=== PATIENT | male | born 1995 | race Caucasian/White ===

== ENCOUNTER 2022-07-21 18:20 | Inpatient (IN) | payer OTHER, SELFPAY ==
[2022-07-21 18:35] VITALS: BP 118/76; BP 138/77; PULSE 119; PULSE 130; RESP 18; TEMP 37.1; O2SAT 97; O2SAT 98; BMI 38.7
--- NOTE | 2022-07-21 18:46 | ED.PSYCH ---
HPI - Psych General Chief Complaint: Psychiatric Symptoms Stated Complaint: crisis/si Time Seen by Provider: 07/21/22 18:22 Source: patient and EMS Mode of arrival: EMS Limitations: no limitations History of Present Illness HPI Narrative: 26-year-old male history of anxiety and depression presenting to the emergency department via ambulance from his place of employment with anxiety, depression, suicidal ideation with plan to hang himself with a lanyard. Patient tells me he has been feeling this way for the past few days, he reports that 1 of his friends from work got worried about him and asked security to do a well-being check on him, they called 911 and had him come in. Reports increasing life stressors. Tells me that he has many complex with his sister who he lives with. Patient reports he all. Denies homicidal ideation. Denies drugs, alcohol tobacco. Denies visual, auditory and tactile hallucinations. Denies medical complaints. Has never required inpatient psychiatric admission. Related Data Allergies Allergy/AdvReac Type Severity Reaction Status Date / Time Penicillins Allergy Unknown Unknown Unverified 07/21/22 18:44 Review of Systems Review of Systems: Constitutional : No Weight loss, No Fever, No Chills, No Fatigue, No Malaise ENT/Mouth : No sore throat, No Rhinorrhea Eyes: No Eye Pain, No Swelling, No Redness Cardiovascular : No Chest Pain, No SOB, No Dyspnea on Exertion, No Orthopnea, No Edema, No Palpitations Respiratory : No Cough, No Sputum, No Wheezing Gastrointestinal : No Nausea, No Vomiting, No Diarrhea, No Constipation, No abdominal Pain, No Hematochezia, No Melena Genitourinary : No Dysuria, No Urinary Frequency, No Hematuria, Musculoskeletal : No joint pain, No Myalgias, No Joint Swelling Skin : No Skin Lesions, No rash Neuro : No Weakness, No Numbness, No Dizziness, No Headache Psych : + Anxiety/Panic, + Depression, + SI, No HI All other systems reviewed and are negative Yes all other systems are reviewed and are negative [facility] Past Medical History Attestation statement: The following information was validated with the patient. Source: old records reviewed and nursing notes reviewed Social History Social History Alcohol intake: current Alcohol intake frequency: holidays/special occasions only Smoked in Last 30 Days: No Use of substances other than those prescribed or required for medical reasons: Yes Substance Use Type: Marijuana Substance Use Frequency: Occasionally Last Used Substance: Weeks (ago) Advance Directives: No Advance Directives Information Provided: No Physical Exam Vital Signs: Vital Signs: Last Vital Signs Temp 99.0 F 07/21/22 19:36 Pulse 108 H 07/21/22 19:36 Resp 16 07/21/22 19:36 BP 116/60 07/21/22 19:36 Pulse Ox 98 07/21/22 19:36 O2 Del Method 07/21/22 19:36 BMI result Body Mass Index 38.7 Vital signs stable Appearance: Alert.? Oriented X3.? No acute distress.? Patient soft spoken with flat affect. Does not make eye contact. Head: Normocephalic, atraumatic, no step-offs or deformities Eyes: Pupils equal, round and reactive to light.? ENT: Pharynx normal.? Neck: Normal inspection.? Neck supple.? CVS: Normal heart rate and rhythm.? Pulses normal.? Respiratory: No respiratory distress.? Breath sounds normal.? Abdomen: Soft and nontender.? Skin: Skin warm and dry.? Normal skin color.? Normal skin turgor.? Extremities: No lower extremity edema.? No calf ttp. 5/5 strength to bilateral upper and lower extremities Back: No midline tenderness, no C-spine tenderness, full range of motion, no CVA tenderness bilaterally Neuro: Oriented X 3.? No motor deficit.? No sensory deficit. CN 2-12 intact Course Reevaluation(s) Reevaluation #1: CBC with no acute finding. Chemistry with no acute electrolyte abnormalities requiring intervention. Bilirubin 1.9, no tenderness to palpation of abdomen, I do not suspect intra-abdominal etiologies. Urine toxicology negative. Ethanol negative. COVID negative. At this time patient will be placed in observation to allow more time to be evaluated by the behavioral health team. At time observation was started patient common cooperative no acute distress will continue to monitor Time: 21:18 Medications Administered Discontinued Medications Generic Name Dose Route Start Last Admin Trade Name Freq PRN Reason Stop Dose Admin Lorazepam 1 mg 07/21/22 18:44 07/21/22 19:01 Lorazepam 1 Mg Tablet PO 07/21/22 18:45 1 mg ONCE ONE Administration Medical Decision Making Medical Decision Making MDM Narrative: 1847 26-year-old male presents with anxiety, depression and suicidal ideation with plan Physical exam significant for Patient soft spoken with flat affect. Does not make eye contact. Likely anxiety, depression with suicidal ideation. I do not suspect metabolic disturbances. Plan basic labs, evaluation by behavioral health team. Differential Diagnosis Differential Diagnoses: The differential diagnosis associated with the presentation includes Likely anxiety, depression with suicidal ideation. I do not suspect metabolic disturbances. Admission/Observation Consideration of admission/observation: Escalation of care including admission/observation considered Possible inpatient psychiatric admission Consult Healthcare Provider Management of the patient was discussed with: Behavioral Health Provider Lab Data [facility] Lab Attestation statement: I reviewed the patient's lab results. 07/21/22 19:07/21/22 19: Labs: Lab Results 07/21/22 07/21/22 07/21/22 Range/Units 19: 19: 19:01 WBC 7.7 (4.8-10.8) X10*3/uL RBC 6.18 H (4.60-5.80) X10*6/uL Hgb 16.8 (14.0-18.0) g/dl Hct 50.8 (42.0-52.0) % MCV 82.2 (80.0-98.0) fL MCH 27.2 (27.0-33.0) pg MCHC 33.1 (31.0-36.0) g/dl RDW 14.1 (11.0-16.0) % Plt Count 289 (160-400) X10*3/uL MPV 10.9 (9.4-12.4) fL Immature Gran % (Auto) 0.3 (0.0-0.4) % Neut % (Auto) 68.3 (45-73) % Lymph % (Auto) 25.0 (20-40) % [place] % (Auto) 5.8 (2-11) % Eos % (Auto) 0.3 (0-4) % Baso % (Auto) 0.3 (0-2) % Lymph # (Auto) 1.9 (1.2-4.9) X10*3/uL [place] # (Auto) 0.4 (0.1-1.2) X10*3/uL Eos # (Auto) 0.0 (0.0-0.4) X10*3/uL Baso # (Auto) 0.0 (0.0-0.2) X10*3/uL Abs Immat Gran (auto) 0.02 (0.00-0.03) X10*3/uL Absolute Neuts (auto) 5.2 (2.0-8.3) x10*3/uL Absolute Nucleated RBC 0.000 (0.0-0.012) X10*3/uL Nucleated RBC % (auto) 0.0 (0.0-0.2) /100WBC Sodium 140 (135-145) mmol/L Potassium 3.8 (3.3-5.1) mmol/L Chloride 107 (96-108) mmol/L Carbon Dioxide 23 (22-29) mmol/L Anion Gap 14 (12-20) BUN 11 (9-16) mg/dL Creatinine 0.83 (0.5-1.4) mg/dL Estim Creat Clear Calc 173.3 Estimated GFR > 60 Random Glucose 103 (60-115) mg/dL Calcium 9.4 (8.4-10.2) mg/dL Magnesium 1.9 (1.6-2.6) mg/dL Total Bilirubin 1.9 H (0.0-1.0) mg/dL AST 12 (5-37) U/L ALT 14 (0-40) U/L Alkaline Phosphatase 90 (39-117) U/L Total Protein 7.0 (6.5-8.0) g/dL Albumin 4.5 (3.5-5.0) g/dL Urine Opiates Screen (Not Detect) Urine Fentanyl Screen (Not Detect) Ur Barbiturates Screen (Not Detect) Ur Phencyclidine Scrn (Not Detect) Ur Amphetamines Screen (Not Detect) U Benzodiazepines Scrn (Not Detect) Urine Cocaine Screen (Not Detect) U Marijuana (THC) Screen (Not Detect) Ethyl Alcohol < 10 mg/dL COVID-19 (OLIMPIA) Negative (Negative) COVID-19 Clin Com See Note 07/21/22 Range/Units 19:10 WBC (4.8-10.8) X10*3/uL RBC (4.60-5.80) X10*6/uL Hgb (14.0-18.0) g/dl Hct (42.0-52.0) % MCV (80.0-98.0) fL MCH (27.0-33.0) pg MCHC (31.0-36.0) g/dl RDW (11.0-16.0) % Plt Count (160-400) X10*3/uL MPV (9.4-12.4) fL Immature Gran % (Auto) (0.0-0.4) % Neut % (Auto) (45-73) % Lymph % (Auto) (20-40) % [place] % (Auto) (2-11) % Eos % (Auto) (0-4) % Baso % (Auto) (0-2) % Lymph # (Auto) (1.2-4.9) X10*3/uL [place] # (Auto) (0.1-1.2) X10*3/uL Eos # (Auto) (0.0-0.4) X10*3/uL Baso # (Auto) (0.0-0.2) X10*3/uL Abs Immat Gran (auto) (0.00-0.03) X10*3/uL Absolute Neuts (auto) (2.0-8.3) x10*3/uL Absolute Nucleated RBC (0.0-0.012) X10*3/uL Nucleated RBC % (auto) (0.0-0.2) /100WBC Sodium (135-145) mmol/L Potassium (3.3-5.1) mmol/L Chloride (96-108) mmol/L Carbon Dioxide (22-29) mmol/L Anion Gap (12-20) BUN (9-16) mg/dL Creatinine (0.5-1.4) mg/dL Estim Creat Clear Calc Estimated GFR Random Glucose (60-115) mg/dL Calcium (8.4-10.2) mg/dL Magnesium (1.6-2.6) mg/dL Total Bilirubin (0.0-1.0) mg/dL AST (5-37) U/L ALT (0-40) U/L Alkaline Phosphatase (39-117) U/L Total Protein (6.5-8.0) g/dL Albumin (3.5-5.0) g/dL Urine Opiates Screen Not Detected (Not Detect) Urine Fentanyl Screen Not Detected (Not Detect) Ur Barbiturates Screen Not Detected (Not Detect) Ur Phencyclidine Scrn Not Detected (Not Detect) Ur Amphetamines Screen Not Detected (Not Detect) U Benzodiazepines Scrn Not Detected (Not Detect) Urine Cocaine Screen Not Detected (Not Detect) U Marijuana (THC) Screen Not Detected (Not Detect) Ethyl Alcohol mg/dL COVID-19 (OLIMPIA) (Negative) COVID-19 Clin Com Core Measures AMI core measures followed: Yes Measure exclusions: not indicated Critical Care Time Critical Care Time Critical Care Time: No Discharge Plan Discharge Clinical Impression: Depression, Suicidal ideation Patient Disposition: Still a Patient Interventions: [place]-Suicide Risk Severity Scale Last Done: 07/21/22 18:50
[2022-07-21] MEDS: LORazepam 1 MG TABLET PO (19:01)
[2022-07-21 19:04] LABS: MANUAL DIFF FLAG NO
[2022-07-21 19:10] LABS: Basophils Percent Auto 0.3 % (0-2); Eosinophils Percent Auto 0.3 % (0-4); Hematocrit 50.8 % (42.0-52.0); Hemoglobin 16.8 g/dl (14.0-18.0); Imm Gran Abs Auto 0.02 X10*3/uL (0.00-0.03); Imm Gran Pct Auto 0.3 % (0.0-0.4); Lymphocytes Absolute Auto 1.9 X10*3/uL (1.2-4.9); Mean Corpuscular HGB Conc 33.1 g/dl (31.0-36.0); Mean Corpuscular Hemoglobin 27.2 pg (27.0-33.0); Mean Corpuscular Volume 82.2 fL (80.0-98.0); Mean Platelet Volume 10.9 fL (9.4-12.4); Monocytes Absolute Auto 0.4 X10*3/uL (0.1-1.2); Monocytes Percent Auto 5.8 % (2-11); Neutrophils Absolute Auto 5.2 x10*3/uL (2.0-8.3); Neutrophils Percent Auto 68.3 % (45-73); Platelet Count 289 X10*3/uL (160-400); Red Blood Count 6.18 X10*6/uL (4.60-5.80); Red Cell Distribution Width 14.1 % (11.0-16.0); White Blood Count 7.7 X10*3/uL (4.8-10.8)
--- NOTE | 2022-07-21 19:13 | MHC.EDTECH ---
pt blood drawn ,covid swab collected and urine sample all sent to lab .
[2022-07-21 19:21] LABS: Alanine Aminotransferase 14 U/L (0-40); Albumin Level 4.5 g/dL (3.5-5.0); Alkaline Phosphatase 90 U/L (39-117); Anion Gap 14 (12-20); Aspartate Amino Transferase 12 U/L (5-37); Bilirubin Total 1.9 mg/dL (0.0-1.0); Blood Urea Nitrogen 11 mg/dL (9-16); Calcium 9.4 mg/dL (8.4-10.2); Carbon Dioxide 23 mmol/L (22-29); Chloride 107 mmol/L (96-108); Creatinine Clr Calc Pharmacy 173.3; Estimated Glomerular Filt Rate > 60; Ethanol < 10 mg/dL; Glucose Random 103 mg/dL (60-115); Magnesium 1.9 mg/dL (1.6-2.6); Potassium 3.8 mmol/L (3.3-5.1); Sodium 140 mmol/L (135-145)
[2022-07-21 19:25] LABS: Amphetamine Screen Urine Not Detected (Not Detect); Barbiturates, Urine Not Detected (Not Detect); Benzodiazepines Screen Urine Not Detected (Not Detect); Cannabinoid Screen Urine Not Detected (Not Detect); Cocaine Screen Urine Not Detected (Not Detect); Fentanyl, urine Not Detected (Not Detect); Opiate Screen Urine Not Detected (Not Detect); Phencyclidine Screen Urine Not Detected (Not Detect)
[2022-07-21 19:36] VITALS: BP 116/60; PULSE 108; RESP 16; TEMP 37.2; O2SAT 98
--- NOTE | 2022-07-21 19:38 | MHC.EDTECH ---
PT VITALS SIGN TAKEN ,PT HAD DINNER ATE 100 % OF MEAL ,DRANK 360 ML FLUIDS 5 5
[2022-07-21 19:57] LABS: COVID-19 Test Negative (Negative); IDNOW Serial# 6674DD1D
--- NOTE | 2022-07-21 21:04 | PC.NURSE ---
I took over care of the pt at 2100. Pt was changed over in the Main ED and brought to Pod by security and tech. Pt is here for suicidal ideation with a plan of hanging himself. Pt has been calm and cooperative while in the ER. Pt is very somnolent, reports he is still having thoughts of hurting himself. Pt was brought to 07 and given shayla peggy per request. Pt has no other complaints at this time. Currently waiting for pt to be seen by CARE team.
--- NOTE | 2022-07-21 22:37 | PC.NURSE ---
Pt mother called, asked to speak to the pt. Pt was given her phone number to call in the morning. Pt stated he will not be calling her.
[2022-07-21] MEDS: diphenhydrAMINE HCL 25 MG CAPSULE PO (23:55)
[2022-07-22 02:15] VITALS: BP 117/58; PULSE 101; RESP 18; TEMP 37.2; O2SAT 98
[2022-07-22 10:38] VITALS: BP 123/66; PULSE 91; RESP 17; TEMP 37.1; O2SAT 97
--- NOTE | 2022-07-22 11:06 | PHA.MEDREC ---
Pharmacy Consult ? Medication Reconciliation Pharmacy has completed the medication reconciliation.
--- NOTE | 2022-07-22 14:18 | PC.NURSE ---
patient sleeping. respirations equal and unlabored. no signs of distress. will CTM
[2022-07-23] MEDS: hydrOXYzine HCL 25 MG TABLET PO ×2 (01:29→17:35)
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
[2022-07-23 09:45] VITALS: BP 120/59; PULSE 90; RESP 18; TEMP 36.7; O2SAT 96
--- NOTE | 2022-07-23 10:36 | HO.PSYADMNOT ---
HPI Date of Service: 07/23/22 Chief Complaint: SI Sources of Information: patient interviewed, chart reviewed and crisis/core team assessment reviewed HPI Subjective Notes: Quinonez Warning (given and shows understanding), Conditional Voluntary and 3 Day Narrative: Mr. Agrawal is a 26 year-old male with hx of mood disorder who was brought via EMS to [facility] after pt told friend that he had suicidal ideation with plan to hang himself in context of argument with female friend at work who is not talking to him and he felt rejected. In the ED, pt's utox is negative. On the unit, pt reports he has had episodes of mental break down usually when feeling rejected or ignored or abandoned by friends. He reported he had similar incident 2 months ago when friend was not getting back to him. He reports tihs time he disclosed personal information about his female friend to another coworker and this upset the friend. Pt reports friend did not talk to him throughout their shift together and that friend had left work earlier. Pt reports feeling rejected, thinking relationship will end and this friend would not want to be his friend any more. He reports day the ambulance was called he was sending text messages to another male friend and he called 911. On the unit, pt denies suicidal ideation. He reports he realizes that there are many other people who are waiting for him to get out of the hospital and care for him. However, he states he does not want to return to work until he is certain that his female friend will forgive him. He denies hx of VH/AH. He reports good sleep. Past Psychiatric History: Inpatient: none prior OP: none Hx of suicide attempts: pt reports one previous incident of contemplating to hang self but no actual attempt. Medical Evaluation Reviewed: Yes Labs- 07/21/2022 CBC slight elevation of RBC 6.18, CMP wnl, slight elebation of total bilirubin 1.9. Utox is negative. [facility] Medical History (Updated 07/23/22 @ 13:58 by Montse Euceda) No known health problems Family History: none Social History: Lives with sister. No children. 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 Substance History: Pt denies any current use. Trauma History: Denies. Diagnostics Vital Signs (24Hr): Vital Signs - 24 hr 07/22/22 10:38 07/23/22 09:45 Temperature 98.7 F 98.0 F Pulse Rate 91 90 Respiratory Rate 17 18 Blood Pressure 123/66 120/59 L Pulse Oximetry 97 96 Oxygen Delivery Method Room Air Room Air BMI result Body Mass Index 38.7 Labs 07/21/22 19:01 07/21/22 19:01 Labs: Laboratory Results - last 48 hr 07/21/22 07/21/22 07/21/22 19:01 19:01 19:01 WBC 7.7 RBC 6.18 H Hgb 16.8 Hct 50.8 MCV 82.2 MCH 27.2 MCHC 33.1 RDW 14.1 Plt Count 289 MPV 10.9 Immature Gran % (Auto) 0.3 Neut % (Auto) 68.3 Lymph % (Auto) 25.0 [place] % (Auto) 5.8 Eos % (Auto) 0.3 Baso % (Auto) 0.3 Lymph # (Auto) 1.9 [place] # (Auto) 0.4 Eos # (Auto) 0.0 Baso # (Auto) 0.0 Abs Immat Gran (auto) 0.02 Absolute Neuts (auto) 5.2 Absolute Nucleated RBC 0.000 Nucleated RBC % (auto) 0.0 Sodium 140 Potassium 3.8 Chloride 107 Carbon Dioxide 23 Anion Gap 14 BUN 11 Creatinine 0.83 Estim Creat Clear Calc 173.3 Estimated GFR > 60 Random Glucose 103 Calcium 9.4 Magnesium 1.9 Total Bilirubin 1.9 H AST 12 ALT 14 Alkaline Phosphatase 90 Total Protein 7.0 Albumin 4.5 Urine Opiates Screen Urine Fentanyl Screen Ur Barbiturates Screen Ur Phencyclidine Scrn Ur Amphetamines Screen U Benzodiazepines Scrn Urine Cocaine Screen U Marijuana (THC) Screen Ethyl Alcohol < 10 COVID-19 (OLIMPIA) Negative COVID-19 Clin Com See Note 07/21/22 19:10 WBC RBC Hgb Hct MCV MCH MCHC RDW Plt Count MPV Immature Gran % (Auto) Neut % (Auto) Lymph % (Auto) [place] % (Auto) Eos % (Auto) Baso % (Auto) Lymph # (Auto) [place] # (Auto) Eos # (Auto) Baso # (Auto) Abs Immat Gran (auto) Absolute Neuts (auto) Absolute Nucleated RBC Nucleated RBC % (auto) Sodium Potassium Chloride Carbon Dioxide Anion Gap BUN Creatinine Estim Creat Clear Calc Estimated GFR Random Glucose Calcium Magnesium Total Bilirubin AST ALT Alkaline Phosphatase Total Protein Albumin Urine Opiates Screen Not Detected Urine Fentanyl Screen Not Detected Ur Barbiturates Screen Not Detected Ur Phencyclidine Scrn Not Detected Ur Amphetamines Screen Not Detected U Benzodiazepines Scrn Not Detected Urine Cocaine Screen Not Detected U Marijuana (THC) Screen Not Detected Ethyl Alcohol COVID-19 (OLIMPIA) COVID-19 Clin Com Meds/Allergies Meds Home Medications Medication Instructions Recorded Confirmed Type No Known Home Meds 07/22/22 07/23/22 History Allergies Allergies Allergy/AdvReac Type Severity Reaction Status Date / Time Penicillins Allergy Unknown Unknown Verified 07/23/22 02:46 Mental Status Exam Mental Status Exam Narrative: Appearance: wearing hospital gown, good hygiene, in NAD Behavior: cooperative Psychomotor: no agitation or retardation noted Speech: clear, normal rate/rhythm/volume, spontaneous TP: linear TC: no signs of psychosis, feeling better, less distress over rejection by female friend. Mood: better Affect: congruent SI: none HI: none VH/AH: none Insight/judgment: fair x 2. Memory/cog: alert, oriented x 3. grossly intact to conversational testing. Assessment & Plan Assessment & Plan (1) Mood disorder: Status: Acute Code(s): F39 - Unspecified mood [affective] disorder Plan Mr. Agrawal is a 26 year-old male who was brought via EMS from work as pt reported to friend that he had suicidal ideation with plan to hang himself in context of female coworker not talking to him after argument they had. Pt does report intense emotional distress when feeling abandon and rejected by other. We discussed symptoms of borderline personality disorder including mood instability, difficulty self regulation emotion with interpersonal conflict, fear of abandonment and chronic sense of emptiness which pt identifies with. Pt adamantly denies suicidal or homicidal ideation. He is hoping to be discharged soon. We discussed risks, benefits and alternative treatment options, pt ambivalent about medication but open to referral for individual psychotherapy. PLAN 1. Admit to , CV, 3 day notice, 15 minutes checks for safety 2. Obtain collateral information 3. Aftercare planning. Patient educated on: diagnosis Reason for continued inpatient stay Substantial Risk for: harm to self Statement Statement: I have reviewed the history and physical and performed a pertinent examination on my patient. No changes have occurred unless specified. If the History and Physical was not performed prior to admission, the Hospitalist's service will be consulted for completing the admission physical. Time Spent With Patient Time: Total time managing care of this patient today ____ minutes.
[2022-07-23 20:15] VITALS: BP 136/61; PULSE 108; RESP 18; TEMP 36.7; O2SAT 97
[2022-07-23] MEDS: traZODone HCL 50 MG TABLET PO (21:01)
[2022-07-24 08:22] VITALS: BP 124/64; PULSE 95; RESP 18; TEMP 36.7; O2SAT 98
--- NOTE | 2022-07-24 14:10 | PM.PSYDC ---
DS: Providers Provider Date of Service: 07/24/22 Date of admission: 07/22/22 23:38 Primary care physician: Unknown Physician DS: Diagnosis Discharge Diagnosis (1) Mood disorder: Status: Acute DS: Medications Discharge Medications Home Medications: Previous Rx's Medication Instructions Recorded hydroxyzine HCl 25 mg tablet 25 mg PO TID PRN Anxiety #90 tabs 07/24/22 Mental Status Exam Mental Status Exam Narrative: Appearance: wearing hospital gown, good hygiene, in NAD Behavior: cooperative Psychomotor: no agitation or retardation noted Speech: clear, normal rate/rhythm/volume, spontaneous TP: linear TC: no signs of psychosis, feeling better, less distress over rejection by female friend. Mood: better Affect: congruent SI: none HI: none VH/AH: none Insight/judgment: fair x 2. Memory/cog: alert, oriented x 3. grossly intact to conversational testing. Data Data Completed and Pending Completed studies during hospitalization [Text1]: 07/21/22 07/21/22 07/21/22 19:01 19:01 19:01 WBC 7.7 RBC 6.18 H Hgb 16.8 Hct 50.8 MCV 82.2 MCH 27.2 MCHC 33.1 RDW 14.1 Plt Count 289 MPV 10.9 Immature Gran % (Auto) 0.3 Neut % (Auto) 68.3 Lymph % (Auto) 25.0 Kay % (Auto) 5.8 Eos % (Auto) 0.3 Baso % (Auto) 0.3 Lymph # (Auto) 1.9 Kay # (Auto) 0.4 Eos # (Auto) 0.0 Baso # (Auto) 0.0 Abs Immat Gran (auto) 0.02 Absolute Neuts (auto) 5.2 Absolute Nucleated RBC 0.000 Nucleated RBC % (auto) 0.0 Sodium 140 Potassium 3.8 Chloride 107 Carbon Dioxide 23 Anion Gap 14 BUN 11 Creatinine 0.83 Estim Creat Clear Calc 173.3 Estimated GFR > 60 Random Glucose 103 Calcium 9.4 Magnesium 1.9 Total Bilirubin 1.9 H AST 12 ALT 14 Alkaline Phosphatase 90 Total Protein 7.0 Albumin 4.5 Urine Opiates Screen Urine Fentanyl Screen Ur Barbiturates Screen Ur Phencyclidine Scrn Ur Amphetamines Screen U Benzodiazepines Scrn Urine Cocaine Screen U Marijuana (THC) Screen Ethyl Alcohol < 10 COVID-19 ([facility]) Negative COVID-19 Clin Com See Note 07/21/22 19:10 WBC RBC Hgb Hct MCV MCH MCHC RDW Plt Count MPV Immature Gran % (Auto) Neut % (Auto) Lymph % (Auto) Kay % (Auto) Eos % (Auto) Baso % (Auto) Lymph # (Auto) Kay # (Auto) Eos # (Auto) Baso # (Auto) Abs Immat Gran (auto) Absolute Neuts (auto) Absolute Nucleated RBC Nucleated RBC % (auto) Sodium Potassium Chloride Carbon Dioxide Anion Gap BUN Creatinine Estim Creat Clear Calc Estimated GFR Random Glucose Calcium Magnesium Total Bilirubin AST ALT Alkaline Phosphatase Total Protein Albumin Urine Opiates Screen Not Detected Urine Fentanyl Screen Not Detected Ur Barbiturates Screen Not Detected Ur Phencyclidine Scrn Not Detected Ur Amphetamines Screen Not Detected U Benzodiazepines Scrn Not Detected Urine Cocaine Screen Not Detected U Marijuana (THC) Screen Not Detected Ethyl Alcohol COVID-19 ([facility]) COVID-19 Clin Com DS: Summary Hospital Course Hospital Course: Subjective Notes: Quinonez Warning (given and shows understanding), Conditional Voluntary and 3 Day Narrative: Mr. Agrawal is a 26 year-old male with hx of mood disorder who was brought via EMS to [facility] after pt told friend that he had suicidal ideation with plan to hang himself in context of argument with female friend at work who is not talking to him and he felt rejected. In the ED, pt's utox is negative. On the unit, pt reports he has had episodes of mental break down usually when feeling rejected or ignored or abandoned by friends. He reported he had similar incident 2 months ago when friend was not getting back to him. He reports tihs time he disclosed personal information about his female friend to another coworker and this upset the friend. Pt reports friend did not talk to him throughout their shift together and that friend had left work earlier. Pt reports feeling rejected, thinking relationship will end and this friend would not want to be his friend any more. He reports day the ambulance was called he was sending text messages to another male friend and he called 911. On the unit, pt denies suicidal ideation. He reports he realizes that there are many other people who are waiting for him to get out of the hospital and care for him. However, he states he does not want to return to work until he is certain that his female friend will forgive him. He denies hx of VH/AH. He reports good sleep. Past Psychiatric History: Inpatient: none prior OP: none Hx of suicide attempts: pt reports one previous incident of contemplating to hang self but no actual attempt. Medical Evaluation Reviewed: Yes Labs- 07/21/2022 CBC slight elevation of RBC 6.18, CMP wnl, slight elebation of total bilirubin 1.9. Utox is negative. HOSPITAL COURSE On the unit, pt was admitted on a CV and placed on 15 minutes checks for safety. Pt described history of mood instability in context of interpersonal dynamics, specific to feeling abandoned or ignored. He adamantly denied suicidal or homicidal ideation. He denied hx of psychosis or delusions and did not show any signs of these symptoms. We discussed at length that most effective treatment for his presentation is OP psychotherapy with medication management. Pt was explained that he appears to have borderline personality disorder. As we discussed more in detail symptoms of this diagnosis, he reported feelin identify with them such as chronic sense of emptiness, mood dysregulation. There were no incidences of disruptive behaviors nor need for restraints. Collateral information was gathered from his sister who denied any safety concerns at time of discharged and agreed that pt appeared in much improved condition. Status at Discharge Cognitive/behavioral status at discharge: Pt with bright, non labile affect. No SI/HI. No signs of psychosis or delusions. Pt presented as future oriented. No signs of aggression towards self or others. Functional status at discharge: independent ambulation Overall status at discharge: patient is progressing back to baseline Time Spent with Patient Time attestation: Total time managing care of this patient today __30__ minutes. Time spent: Greater than 30 minutes Discharge Plan Discharge Anticipated Discharge Date/Time: 07/24/22 14:06 Patient Disposition: Home, Self-Care Discharge Diagnosis: Mood disorder R/O BPD Referrals: [facility] [Other] - 1 Week (Office called for appointment, will call patient for follow up) [facility] [Other] - 08/21/22 2:00 pm (Psychiatric assessment- Shania Guevara (Telehealth)) [facility] [Provider Group] - 07/30/22 2:00 pm (Lesa Blair- In Office Intake) Discharge Medications: New hydroxyzine HCl 25 mg Tablet 25 mg PO TID PRN (Reason: Anxiety) Qty: 90 0RF Discharge Orders: Discharge Order (Routine); Ordered 07/24/22 Ordered By: Montse Euceda Diet: Regular diet Activity on Discharge: As tolerated Stand Alone Forms: Patient Portal Discharge page, Community Support Care Plan Goals: 1. Maintain mood 2. No SI/HI Health Concerns: Follow up with PCP Plan of Treatment: Follow up with PCP Assessment: pt with brighter, non labile. No SI/HI. No psychosis, no signs of aggression towards self or others. Discharge Date/Time: 07/24/22 14:15
== END 2022-07-24 14:15 | disposition home or self-care (01) | DRG 753 ==
LOC: HO.ED 07-22 16:58 → HO.PADLT16 07-22 23:47
PROVIDERS: Physician Assistant; Admitting Provider Psychiatry & Neurology Psychiatry; Emergency Provider Emergency Medicine; Visit Provider Social Worker
DX: F39 Unspecified mood [affective] disorder (principal); R45.851 Suicidal ideations; Z20.822 Contact with and (suspected) exposure to COVID-19; Z79.899 Other long term (current) drug therapy; Z88.0 Allergy status to penicillin
CPT/HCPCS: 80053; 80307; 82077; 83735; 85025; 87635; 99285; S9485

== ENCOUNTER 2025-02-15 19:50 | Emergency (ER) | payer SELFPAY ==
--- NOTE | ~2025-02-15 | XR_ITS ---
CLINICAL HISTORY: ankle pain sudden onset 3 view right ankle Comparison: None provided Findings: Bones intact. No dislocations. No arthritic change. No definite ankle effusion. No radiopaque foreign body. IMPRESSION: Generalized soft tissue swelling. Etiology indeterminate. This document has been electronically signed by: Joe Dickson MD on 02/15/2025 21:15:43
[2025-02-15 20:19] VITALS: BP 118/69; PULSE 72; RESP 18; TEMP 36.3; O2SAT 95; BMI 41.8
--- NOTE | 2025-02-16 00:13 | ED_ITS ---
HPI - General Adult General Chief complaint: Extremity Problem Stated complaint: rt ankle/leg pain Time Seen by Provider: 02/15/25 22:53 Source: patient Limitations: no limitations History of Present Illness ED Provider: Summer Chow PA-C HPI narrative: 29-year-old male with a history of mood disorder, presents with right ankle pain x 3 days. Patient states he developed acute onset right ankle pain, worse with bearing weight and ambulating. No known injury to his knowledge, he does state that he has a diagnosis of being flat-footed. Patient states he typically wears sneakers. There was no redness or swelling of the joint no fever. Related Data Previous Rx's ?Medication ?Instructions ?Recorded hydroxyzine HCl 25 mg tablet 25 mg PO TID PRN Anxiety #90 tabs 07/24/22 Allergies Allergy/AdvReac Type Severity Reaction Status Date / Time Penicillins Allergy Unknown Unknown Verified 02/15/25 20:21 Review of Systems Review of Systems: Yes all other systems are reviewed and are negative Constitutional: Constitutional: Denies fatigue and Denies fever(s) Musculoskeletal: Musculoskeletal: Reports arthralgias and Reports joint swelling Endocrine: Endocrine: Denies fatigue PMFSH Past Medical History Attestation statement: The following information was validated with the patient. Medical History (Updated 02/16/25 @ 00:17 by RUFUS Healy) No known health problems Social History Social History Household Members: Family Household Members Other:: lives with sister, Miracle Housing: Apartment Do you presently have visiting nurse or other home services: No Alcohol intake: current Alcohol intake frequency: holidays/special occasions only Patient Tobacco Use Status: Never used Tobacco Substance Use Type: Marijuana Advance Directives: No Do you have a plan to hurt others: No Plan service: No Sexual orientation: Decline to Answer Physical Exam ED Vital Signs: Vital Signs - 24 hr 02/15/25 20:19 Temperature 97.3 F Pulse Rate 72 Respiratory Rate 18 Blood Pressure 118/69 Pulse Oximetry 95 Oxygen Delivery Method Room Air BMI result Body Mass Index 41.8 Const Other: Alert well appearing Orientation/consciousness: patient oriented x3 Resp Effort & Inspection: normal respiratory effort Cardio Other: Normal peripheral perfusion Skin Other: Warm dry no rash Neuro General: patient oriented x3, gait normal, no focal motor deficits and CN's II- XI intact bilaterally Extrem Other: No deformity or swelling of the right ankle no overlying erythema or warmth, patient is able to flex and extend, he is ambulatory Psych Other: Cooperative Medications Administered Discontinued Medications Generic Name Dose Route Start Last Admin Trade Name Debra PRN Reason Stop Dose Admin Ibuprofen 600 mg 02/16/25 00:00 02/16/25 00:09 Ibuprofen 600 Mg Tablet PO 02/16/25 00:01 600 mg ONCE ONE Administration Medical Decision Making Medical Decision Making [facility] Narrative: 29-year-old male with a history of mood disorder, presents with right ankle pain x 3 days. Patient states he developed acute onset right ankle pain, worse with bearing weight and ambulating. No known injury to his knowledge, he does state that he has a diagnosis of being flat-footed. Patient states he typically wears sneakers. There was no redness or swelling of the joint no fever. Problem: pes planus History: Per patient I have considered the following differential diagnoses: Fracture, dislocation, sprain/strain, septic joint Plan: X-rays of the ankle ordered from triage there was no fracture or dislocation the patient likely has pain secondary to his underlying condition, we will send him with referral to Podiatry, we will be treating this as a sprain. Sending with home care instructions I have independently reviewed the following tests: X-ray right ankle:Findings: Bones intact. No dislocations. No arthritic change. No definite ankle effusion. No radiopaque foreign body. IMPRESSION: Generalized soft tissue swelling. Etiology indeterminate. Differential Diagnosis Differential Diagnoses: The differential diagnosis associated with the presentation includes See medical decision Admission/Observation Consideration of admission/observation: Escalation of care including admission/observation considered Not applicable Radiology Impression Discussion of test interpretation with radiology: I have reviewed the radiologist's reading. Discharge Plan Discharge Clinical Impression: Ankle pain, right Patient Disposition: Home, Self-Care Instructions: Arthralgia (ED), P.R.I.C.E. Treatment (ED) Additional Instructions: The x-ray of your ankle was negative for fracture or dislocation. Being flat- footed may be part of the problem. We are treating this as a sprain type injury. I am going to send you with a contact for our mannequin wig maker, you can call to schedule an appointment. In the meantime, be sure to wear a shoe that helps to support your arch. I would also purchase an [id number] compression sleeve for the ankle; they can be purchased at any store including [employer]. Use ibuprofen 600 mg taken every 6 hours with food for your pain. Prescriptions: No Action hydroxyzine HCl 25 mg Tablet 25 mg PO TID PRN (Reason: Anxiety) Qty: 90 0RF Referrals: Lane Trevino DPM [Manager Culinary, Podiatry] Referral Note: right ankle pain, pes planus Stand Alone Forms: Work/School Release Print Language: Bulgarian
== END 2025-02-16 00:42 | disposition home or self-care (01) ==
PROVIDERS: Emergency Provider Emergency Medicine
DX: M25.571 Pain in right ankle and joints of right foot (principal)
CPT/HCPCS: 73610; 99282; 99283

== ENCOUNTER → 2025-02-15 20:40 | Outpatient (BNV) | payer OTHER, SELFPAY | PROVIDERS: Visit Provider Radiology Diagnostic Radiology | DX: R22.41 Localized swelling, mass and lump, right lower limb (principal) | CPT/HCPCS: 73610 ==